=== PATIENT | female | born 1995 | race African-American/Black ===

== ENCOUNTER → 2017-03-30 | Outpatient (CLI) | payer OTHER ==
[2017-03-30 19:00] LABS: FOLLICLE STIMULATING HORMONE 6.5 mIU/mL; LUTEINIZING HORMONE 12.2 mIU/mL
[2017-03-30 19:06] LABS: ALBUMIN 4.3 GM/DL (3.2-5.2); ALBUMIN/GLOBULIN RATIO 1.16 (1.00-1.93); ALKALINE PHOSPHATASE 73 U/L (45-117); ALT/SGPT 84 U/L (12-78); ANION GAP 10 MEQ/L (8-16); AST/SGOT 43 U/L (7-37); BILIRUBIN,TOTAL 0.4 MG/DL (0.2-1.0); BLOOD UREA NITROGEN 10 MG/DL (7-18); CALCIUM LEVEL 9.5 MG/DL (8.5-10.1); CARBON DIOXIDE LEVEL 26 MEQ/L (21-32); CHLORIDE LEVEL 105 MEQ/L (98-107); CHOLESTEROL LEVEL 184 MG/DL (<200); CREATININE FOR GFR 0.81 MG/DL (0.55-1.02); GLOMERULAR FILTRATION RATE > 60.0 (>60); GLUCOSE, FASTING 75 MG/DL (70-105); SODIUM LEVEL 141 MEQ/L (136-145); TRIGLYCERIDES LEVEL 119 MG/DL (<150)
== END ==
LOC: M SMT 14:48
PROVIDERS: ATTEND Physician Assistant Medical
DX: E28.2 Polycystic ovarian syndrome (principal); G47.00 Insomnia, unspecified; B36.0 Pityriasis versicolor

== ENCOUNTER → 2017-04-13 | Outpatient (CLI) | payer OTHER ==
--- NOTE | 2017-04-20 20:06 | SLEEPHOME ---
DATE OF PROCEDURE: 04/13/2017 ORDERED BY: Eliana Francois Diagnostic home sleep testing was performed due to concern for the obstructive sleep apnea syndrome in this patient with a history of sleep difficulty and snoring. For testing, a NOX-T3 respiratory monitoring device was used. Continuous record was made of pulse, oxygen saturation, air flow, chest and abdominal strain and body position. 9 hours and 59 minutes of data were reviewed. There were 9 hours and 49 minutes marked as time in bed. During the interval marked time in bed, there were only 16 obstructive respiratory events identified of 10 seconds in duration or greater for a respiratory event index within normal limits at 1.6. The events that were seen were primarily hypopneic. Baseline pulse rate 73 beats per minute. Pulse rate ranged 53 to 116. Baseline saturation 95%. Lowest oxygen saturation 90%. Testing was performed in both the supine and nonsupine positions. IMPRESSION: Normal diagnostic home sleep testing with few significant respiratory events and no significant oxygen desaturations. The above results do not support a diagnosis of obstructive sleep apnea syndrome.
== END ==
LOC: M SLEEP HO 10:18
PROVIDERS: ATTEND Physician Assistant Medical
DX: R06.83 Snoring (principal)

== ENCOUNTER → 2017-05-26 | Outpatient (CLI) | payer OTHER | LOC: M RAD 10:10 | DX: N63.12 Unspecified lump in the right breast, upper inner quadrant (principal) | CPT/HCPCS: 77066 ==

== ENCOUNTER → 2017-08-09 | Outpatient (CLI) | payer OTHER ==
[2017-08-09 20:26] LABS: ESTIMATED AVERAGE GLUCOSE 88 MG/DL (60-110); HEMOGLOBIN A1c 4.7 %
[2017-08-11 08:54] LABS: TOTAL 25(OH) VITAMIN D 29.6 NG/ML (30.0-100.0)
[2017-08-11 09:55] LABS: LUTEINIZING HORMONE 11.9 mIU/mL
[2017-08-11 09:55] LABS: FOLLICLE STIMULATING HORMONE 6.9 mIU/mL
[2017-08-12 00:08] LABS: TESTOSTERONE FREE (DIRECT) 3.6 pg/mL (0.0-4.2)
== END ==
LOC: M SMT 14:46
DX: Z13.29 Encounter for screening for other suspected endocrine disorder (principal); E28.2 Polycystic ovarian syndrome

== ENCOUNTER → 2018-01-09 | Outpatient (CLI) | payer OTHER ==
[2018-01-09 18:46] LABS: HCG, SERUM QUANTITATIVE 58735 MIU/ML
== END ==
LOC: M WUC 12:15
DX: O20.0 Threatened abortion (principal)

== ENCOUNTER → 2018-01-11 | Outpatient (REF) | payer OTHER ==
[2018-01-11 14:15] LABS: HCG, SERUM QUANTITATIVE 61680 MIU/ML
== END ==
LOC: M WUC 10:45
DX: O20.0 Threatened abortion (principal)

== ENCOUNTER 2018-01-25 09:20 | Day surgery (SDC) | payer OTHER ==
[2018-01-25 10:23] LABS: HEMATOCRIT 36.9 % (36.0-47.0); HEMOGLOBIN 12.3 g/dl (12.0-15.5); MEAN CORPUSCULAR HEMOGLOBIN 29.9 pg (27.0-33.0); MEAN CORPUSCULAR HGB CONC 33.3 g/dl (32.0-36.5); MEAN CORPUSCULAR VOLUME 89.6 fl (80.0-96.0); PLATELET COUNT, AUTOMATED 436 10^3/uL (150-450); RED BLOOD COUNT 4.12 10^6/uL (4.00-5.40); RED CELL DISTRIBUTION WIDTH 12.1 % (11.5-14.5); WHITE BLOOD COUNT 11.2 10^3/uL (4.0-10.0)
[2018-01-25] MEDS: LIDOCAINE 1% MDV 20ML VIAL As Ordered (11:18)
[2018-01-25] MEDS ORDERED: dexameTHASONE 4 MG/ML 1ML VIAL (J1100) As Ordered (11:19)
[2018-01-25] MEDS ORDERED: LIDOCAINE 2% INJ 100 MG/5 ML SDV (FOR ANES.) As Ordered (11:19)
[2018-01-25] MEDS ORDERED: ONDANSETRON 4MG/2ML VIAL (J2405) As Ordered (11:19)
[2018-01-25] MEDS ORDERED: KETOROLAC 60 MG/2 ML VIAL (J1885) As Ordered (11:19)
[2018-01-25] MEDS ORDERED: PROPOFOL 200 MG/20 ML VIAL As Ordered ×2 (11:19→12:01)
[2018-01-25] MEDS ORDERED: MIDAZOLAM INJ 2 MG/2 ML VIAL (J2250) As Ordered (11:20)
[2018-01-25] MEDS ORDERED: fentaNYL 250 MCG/5 ML INJECTION (J3010) As Ordered (11:20)
[2018-01-25] MEDS ORDERED: LR 1,000 ML IV ×2 (13:00)
[2018-01-25] MEDS ORDERED: PERCOCET 5MG/325MG TAB PO (13:00)
[2018-01-25] MEDS ORDERED: ONDANSETRON 4MG/2ML VIAL (J2405) IV (13:00)
[2018-01-25] MEDS ORDERED: DOXYCYCLINE HYCLATE 100 MG TAB As Ordered (13:02)
[2018-01-25] MEDS: DOXYCYCLINE HYCLATE 100 MG TAB PO (13:05)
[2018-01-25] MEDS ORDERED: ACETAMINOPHEN 500 MG TAB PO (13:15)
== END 2018-01-25 13:30 | disposition home or self-care (01) ==
LOC: M SDC 09:20
DX: O02.1 Missed abortion (principal); E28.2 Polycystic ovarian syndrome; E66.3 Overweight; Z68.28 Body mass index [BMI] 28.0-28.9, adult
CPT/HCPCS: 59820

== ENCOUNTER 2018-01-27 19:47 | Emergency (ER) | payer OTHER ==
[2018-01-27] MEDS: NS 1,000 ML IV (21:21)
[2018-01-27] MEDS: MORPHINE 2 MG/ML 1ML SYRINGE (J2270) IV (21:22)
[2018-01-27 21:37] LABS: BASO # 0.1 10^3/uL (0.0-0.2); BASO % 0.5 % (0.0-1.0); EOS # 0.1 10^3/uL (0.0-0.50); EOS % 0.7 % (0.0-3.0); HEMATOCRIT 33.2 % (36.0-47.0); HEMOGLOBIN 10.9 g/dl (12.0-15.5); IMMATURE GRANULOCYTE % 0.2 % (0-3.0); LYMPH # 3.1 10^3/uL (1.5-6.5); LYMPH % 25.2 % (24.0-44.0); MEAN CORPUSCULAR HEMOGLOBIN 30.2 pg (27.0-33.0); MEAN CORPUSCULAR HGB CONC 32.8 g/dl (32.0-36.5); MONO # 0.9 10^3/uL (0.0-0.8); MONO % 7.3 % (0.0-5.0); NEUTROPHILS % 66.1 % (36.0-66.0); PLATELET COUNT, AUTOMATED 360 10^3/uL (150-450); RED BLOOD COUNT 3.61 10^6/uL (4.00-5.40); RED CELL DISTRIBUTION WIDTH 12.3 % (11.5-14.5); WHITE BLOOD COUNT 12.1 10^3/uL (4.0-10.0)
[2018-01-27 21:44] LABS: KETONE, URINE AUTO RFX NEGATIVE (NEGATIVE); NITRITE, URINE AUTO RFX NEGATIVE (NEGATIVE); RBC, URINE AUTO RFX TNTC /HPF (0-3); SPECIFIC GRAVITY UR AUTO RFX 1.009 (1.002-1.035); SQUAM EPITHELIAL CELL UR AURFX 0 /HPF (0-6)
[2018-01-27 21:57] LABS: LEUKOCYTE ESTERASE UR AUTO RFX TRACE (NEGATIVE); WBC, URINE AUTO RFX 20 /HPF (0-3)
[2018-01-27 22:01] LABS: ANION GAP 9 MEQ/L (8-16); BLOOD UREA NITROGEN 6 MG/DL (7-18); CALCIUM LEVEL 8.4 MG/DL (8.5-10.1); CARBON DIOXIDE LEVEL 25 MEQ/L (21-32); CHLORIDE LEVEL 109 MEQ/L (98-107); CREATININE FOR GFR 0.78 MG/DL (0.55-1.30); GLOMERULAR FILTRATION RATE > 60.0 (>60); GLUCOSE, FASTING 80 MG/DL (70-100); SODIUM LEVEL 143 MEQ/L (136-145)
[2018-01-27] MEDS: METHYLERGONOVINE MALEATE 0.2 MG TAB PO (22:51)
[2018-01-27] MEDS: NORCO 5/325MG TABLET (BULK FOR ED) PO (22:51)
== END 2018-01-27 22:57 | disposition home or self-care (01) ==
LOC: M ED 19:47
DX: N99.820 Postprocedural hemorrhage of a genitourinary system organ or structure following a genitourinary system procedure (principal); M54.5 Low back pain; E28.2 Polycystic ovarian syndrome; Z79.84 Long term (current) use of oral hypoglycemic drugs
CPT/HCPCS: J2270

== ENCOUNTER → 2018-06-04 | Outpatient (CLI) | payer OTHER ==
[~2018-06-04] MED LIST: METF500T4 PO; METH0.2T53 PO; NORCOTAB PO; PNVTAB4 PO; ZOLP5TAB PO
[2018-06-04 14:06] LABS: BASO # 0.1 10^3/uL (0.0-0.2); BASO % 0.7 % (0.0-1.0); EOS # 0.1 10^3/uL (0.0-0.50); EOS % 1.5 % (0.0-3.0); HEMATOCRIT 37.1 % (36.0-47.0); LYMPH # 3.7 10^3/uL (1.5-6.5); LYMPH % 41.1 % (24.0-44.0); MEAN CORPUSCULAR HEMOGLOBIN 29.9 pg (27.0-33.0); MEAN CORPUSCULAR HGB CONC 32.3 g/dl (32.0-36.5); MEAN CORPUSCULAR VOLUME 92.3 fl (80.0-96.0); MONO # 0.9 10^3/uL (0.0-0.8); MONO % 9.6 % (0.0-5.0); NEUTROPHILS # 4.3 10^3/uL (1.8-7.7); NEUTROPHILS % 46.9 % (36.0-66.0); PLATELET COUNT, AUTOMATED 424 10^3/uL (150-450); RED BLOOD COUNT 4.02 10^6/uL (4.00-5.40); WHITE BLOOD COUNT 9.1 10^3/uL (4.0-10.0)
== END ==
LOC: M WUC 10:03
PROVIDERS: ATTEND Family Medicine
DX: D62 Acute posthemorrhagic anemia (principal); E28.2 Polycystic ovarian syndrome

== ENCOUNTER → 2018-10-03 | Outpatient (REF) | payer OTHER ==
[~2018-10-03] MED LIST changes: +HYDR-3715 PO; -NORCOTAB PO
[2018-10-03 15:17] LABS: CHLAMYDIA DNA AMPLIFICATION NEGATIVE (NEGATIVE); GC DNA AMPLIFICATION NEGATIVE (NEGATIVE)
== END ==
LOC: M LAB REF 13:10
PROVIDERS: ATTEND Specialist
DX: Z11.3 Encounter for screening for infections with a predominantly sexual mode of transmission (principal)

== ENCOUNTER → 2018-10-03 | Outpatient (CLI) | payer OTHER | LOC: M SMT 11:13 | PROVIDERS: ATTEND Specialist | DX: Z13.79 Encounter for other screening for genetic and chromosomal anomalies (principal); Z11.3 Encounter for screening for infections with a predominantly sexual mode of transmission | CPT/HCPCS: 36415; 87491; 87591; G0123 ==

== ENCOUNTER → 2018-11-09 | Outpatient (REF) | payer OTHER | LOC: M LAB REF 15:19 | PROVIDERS: ATTEND Physician Assistant | DX: B37.89 Other sites of candidiasis (principal) ==

== ENCOUNTER → 2018-12-31 | Outpatient (CLI) | payer OTHER ==
[~2018-12-31] MED LIST changes: +METF-791 PO; -METF500T4 PO
[2018-12-31 17:31] LABS: ALBUMIN 3.8 GM/DL (3.2-5.2); ALT/SGPT 43 U/L (12-78); BILIRUBIN,TOTAL 0.3 MG/DL (0.2-1.0); BLOOD UREA NITROGEN 12 MG/DL (7-18); CALCIUM LEVEL 9.4 MG/DL (8.5-10.1); CARBON DIOXIDE LEVEL 28 MEQ/L (21-32); CHLORIDE LEVEL 105 MEQ/L (98-107); CREATININE FOR GFR 0.83 MG/DL (0.55-1.30); GLOMERULAR FILTRATION RATE > 60.0 (>60); GLUCOSE, FASTING 99 MG/DL (70-100); POTASSIUM SERUM 4.4 MEQ/L (3.5-5.1); SODIUM LEVEL 141 MEQ/L (136-145); TOTAL PROTEIN 7.1 GM/DL (6.4-8.2)
[2018-12-31 17:39] LABS: FOLLICLE STIMULATING HORMONE 5.7 mIU/mL; LUTEINIZING HORMONE 6.7 mIU/mL
[2018-12-31 18:55] LABS: HEMOGLOBIN A1c 4.7 %
[2019-01-03 00:08] LABS: TESTOSTERONE FREE (DIRECT) 1.5 pg/mL (0.0-4.2)
== END ==
LOC: M SMT 14:25
PROVIDERS: ATTEND Family Medicine
DX: E28.2 Polycystic ovarian syndrome (principal)